=== PATIENT | male | born 1970 | race Two or more races ===

== ENCOUNTER 2022-03-16 13:13 | Inpatient (IN) | payer OTHER ==
[~2022-03-16] VITALS: Ht 180.3 cm; Wt 147.4 kg
[2022-03-16] MEDS ORDERED: LOSARTAN POTASS50 MG PO (13:22)
[2022-03-16] MEDS ORDERED: OZEMPIC0.25 MG/0. IM (13:24)
[2022-03-16] MEDS ORDERED: ALLOPURINOL300 MG PO (13:25)
[2022-03-16] MEDS ORDERED: CRESTOR10 MG PO (13:25)
[2022-03-16] MEDS ORDERED: LOVAZA1 GM PO (13:26)
== END 2022-03-20 19:19 | disposition home or self-care (01) | DRG 355 ==
LOC: ER 13:13 → O/R 19:31 → SEC-K 19:31 → O/R 03-17 05:02 → SURG 03-17 14:24
PROVIDERS: ADMIT Internal Medicine; ATTEND Internal Medicine
PROC: BW21YZZ Computerized Tomography (CT Scan) of Abdomen and Pelvis using Other Contrast (ICD-10-PCS; 2022-03-16)
PROC: 0WUF4JZ Supplement Abdominal Wall with Synthetic Substitute, Percutaneous Endoscopic Approach (ICD-10-PCS; principal; 2022-03-17)
DX: K43.6 Other and unspecified ventral hernia with obstruction, without gangrene (principal); R14.0 Abdominal distension (gaseous); K59.09 Other constipation; I10 Essential (primary) hypertension; Z20.822 Contact with and (suspected) exposure to COVID-19; E11.9 Type 2 diabetes mellitus without complications; Z79.4 Long term (current) use of insulin; G47.33 Obstructive sleep apnea (adult) (pediatric)